=== PATIENT | male | born 1990 | race Caucasian/White ===

== ENCOUNTER 2016-09-03 17:20 | Observation (INO) ==
--- NOTE | 2016-09-03 17:49 | Emergency Department Note ---
Disposition Clinical Impression: Suicidal ideation Disposition: Still a Patient Condition: Undetermined Referrals: NO,PCP [Primary Care Provider] - Forms: ED Satisfaction Letter Time of Disposition: 21:08 Psych HPI - General Chief Complaint: ED Psychiatric Symptoms Stated Complaint: SI/HI withdrawing from heroin and ETOH Time Seen by Provider: 09/03/16 17:26 Source: patient Mode of arrival: ambulatory Limitations: no limitations Nursing Notes Reviewed: Yes Vital Signs Reviewed: Yes - History of Present Illness HPI Narrative: 25-year-old male with extensive psychiatric history as well as substance abuse arrives [facility] emergency department attempting to seek help. The patient states that he is currently withdrawing from heroin, withdrawing from multiple substances to include crack cocaine, heroin, Xanax, methamphetamines, Effexor, alcohol. The patient states he currently drinks 2 L size bottles of vodka every single day and the patient states he drank 2 L today. The patient states he is currently homeless and seeking to 6 help at this time. The patient states that he is contemplating robbing her hurting people in order to go back to half-way where he can be clean. In addition the patient states that he lost his insurance roughly 2 months ago and has not been taking his psychiatric medications since then. The patient denies any hallucinations but states he definitely has suicidal as well as homicidal ideations. The patient denies any other complaints at this time. His affect is full and he is mildly agitated at this time. Pt complaint: suicidal ideation, medical clearance request If medical clearance, reason: intoxication Onset (ago): unknown Duration: getting worse History of similar episodes: Yes Associated symptoms: Reports: denies other symptoms Treatments prior to arrival: none Self harm or harm to others: admits thoughts of self harm, admits thoughts of harming others - Related Data Allergies Allergy/AdvReac Type Severity Reaction Status Date / Time No Known Allergies Allergy Verified 09/03/16 17:35 All systems ED: reviewed and negative except as stated. Constitutional: Denies: fever, chills, weakness, weight change Eyes: Denies: eye pain, eye discharge, vision change Cardiovascular: Denies: chest pain, palpitations, dyspnea on exertion, edema, syncope Respiratory: Denies: cough, dyspnea, wheezes, hemoptysis, stridor Gastrointestinal: Denies: abdominal pain, nausea, vomiting, diarrhea, constipation, hematemesis, melena, hematochezia Genitourinary: Denies: urgency, dysuria, frequency, hematuria Musculoskeletal: Denies: back pain, neck pain, arthralgia, myalgia Integumentary: Denies: rash, abrasion, lesions Neurological: Denies: headache, weakness, numbness, paresthesias, confusion, abnormal gait, vertigo Psychiatric: Reports: anxiety, depression, suicidal thoughts, homicidal thoughts. Denies: auditory hallucinations, visual hallucinations Past Medical History - Past Medical History Attestation: Yes The following information was validated with the patient. Source: patient Medical history: Reports: hypertension Psychiatric history: Reports: anxiety, depression - Social History Smoking Status: Current every day smoker Smokeless Tobacco Status: No Alcohol use: Reports: heavy, recent Drug use: Reports: opiates, prescription drug abuse Physical Exam - General Limitations: no limitations General appearance: alert, in no apparent distress, anxious - Head Head exam: atraumatic, normocephalic, normal inspection - Eye Eye exam: Present: normal appearance, PERRL, EOMI - ENT ENT exam: normal exam, normal oropharynx, mucous membranes moist - Neck Neck exam: Present: normal inspection, full ROM, trachea midline - Chest Chest inspection: Present: normal inspection, symmetric chest wall rise - Respiratory Respiratory exam: Present: normal lung sounds bilaterally - Cardiovascular Cardiovascular exam: Present: regular rate, normal rhythm, normal heart sounds - Abdominal Exam Abdominal exam: Present: soft, Non-Tender. Absent: tenderness, distention, guarding, rebound, rigidity - Extremities Exam Extremities exam: Present: normal inspection, full ROM. Absent: tenderness, pedal edema - Back Exam Back exam: Present: normal inspection, full ROM. Absent: tenderness - Neurological Exam Neurological exam: Present: alert, oriented X3 - Psychiatric Psychiatric exam: Present: agitated, anxious, manic - Expanded Psychiatric Exam Expanded psych exam: Present: pressured speech, flight of ideas, other ( Intoxicated.) Course Vital Signs Temperature 0 F L 09/03/16 17:28 Pulse Rate 0 09/03/16 17:28 Respiratory Rate 0 09/03/16 17:28 Blood Pressure 0/0 09/03/16 17:28 O2 Sat by Pulse Oximetry 0 09/03/16 17:28 Temperature 97.8 F 09/03/16 18:39 Pulse Rate 96 09/03/16 18:39 Respiratory Rate 18 09/03/16 18:39 Blood Pressure 135/76 09/03/16 18:39 O2 Sat by Pulse Oximetry 97 09/03/16 18:39 Oxygen Delivery Oxygen Delivery Room Air Psych - MDM Narrative Medical decision making narrative: We will be obtaining medical clearance for psychiatric eval. Currently blood alcohol level is elevated so we will be waiting until 10 PM for redraw. - Lab Data Result diagrams: 09/03/16 18:25 09/03/16 17:57 Lab Results 09/03/16 09/03/16 09/03/16 Range/Units 17:57 17:57 17:57 WBC (4.3-11.1) K/mcL RBC (4.19-5.50) M/mcL Hgb (12.9-16.9) g/dL Hct (37.5-50.1) % MCV (83.0-100.0) fL MCH (28.0-33.3) pg MCHC (31.6-35.5) g/dL RDW (11.5-14.5) % Plt Count (140-400) K/mcL MPV (9.4-12.4) fL Immature Gran % (0-4) % Seg Neutrophils % % Lymphocytes % % Monocytes % % Eosinophils % % Basophils % % Neutrophils # (1.6-8.9) K/mcL Lymphocytes # (0.6-4.6) K/mcL Monocytes # (0.0-1.3) K/mcL Eosinophils # (0.0-0.6) K/mcL Basophils # (0.0-0.2) K/mcL Immature Plt Fraction (1.1-6.1) % Sodium 140 (136-145) mEq/L Potassium 4.0 (3.5-4.5) mEq/L Chloride 107 (98-109) mEq/L Carbon Dioxide 21 (19-29) mEq/L BUN 12 (8-26) mg/dL Creatinine 0.84 (0.72-1.25) mg/dL Est GFR ( Amer) > 60 (> 60) Est GFR (Non-Af Amer) > 60 (> 60) BUN/Creatinine Ratio 14 (6-26) Glucose 87 (70-99) mg/dL Calculated Osmolality 289 (280-300) Calcium 10.0 (8.6-10.8) mg/dL Urine Color Yellow (Yellow) Urine Clarity Clear (Clear) Urine pH 7.0 (5.0-8.0) pH Units Ur Specific [place] 1.008 L (1.010-1.025) Urine Protein Negative (Neg-Trace) mg/dL Urine Glucose (UA) Normal (Normal) mg/dL Urine Ketones Negative (Negative) mg/dL Urine Blood Trace H (Negative) Urine Nitrite Negative (Negative) Urine Bilirubin Negative (Negative) Urine Urobilinogen Normal (Normal) mg/dL Ur Leukocyte Esterase Negative (Negative) Urine Microscopic RBC 0-3 (0-3) per hpf Urine Microscopic WBC 0-3 (0-3) per hpf Ur Squamous Epith Cells None Seen (None-Few) per lpf Urine Bacteria None Seen (None-Few) per hpf Hyaline Casts None Seen (None-Few) per lpf Salicylates < 5.0 L (15-30) mg/dL Urine Opiates Screen Negative (Ualxcr=887) ng/mL Acetaminophen < 1.0 L (10-30) mcg/mL Ur Barbiturates Screen Negative (Qrpcgr=551) ng/mL Ur Phencyclidine Scrn Negative (Cutoff=25) ng/mL Ur Amphetamines Screen Negative (Yehdlq=8857) ng/mL U Benzodiazepines Scrn Negative (Yeukrm=222) ng/mL Urine Cocaine Screen Positive H (Cutoff= 300) ng/mL U Marijuana (THC) Screen Negative (Cutoff = 50) ng/mL Ethyl Alcohol 120 H (0-10) mg/dL 09/03/16 09/03/16 Range/Units 18:25 21:53 WBC 9.7 (4.3-11.1) K/mcL RBC 4.89 (4.19-5.50) M/mcL Hgb 14.4 (12.9-16.9) g/dL Hct 44.2 (37.5-50.1) % MCV 90.4 (83.0-100.0) fL MCH 29.4 (28.0-33.3) pg MCHC 32.6 (31.6-35.5) g/dL RDW 12.4 (11.5-14.5) % Plt Count 337 (140-400) K/mcL MPV 8.5 L (9.4-12.4) fL Immature Gran % 0.2 (0-4) % Seg Neutrophils % 79.3 % Lymphocytes % 10.2 % Monocytes % 9.7 % Eosinophils % 0.4 % Basophils % 0.2 % Neutrophils # 7.7 (1.6-8.9) K/mcL Lymphocytes # 1.0 (0.6-4.6) K/mcL Monocytes # 0.9 (0.0-1.3) K/mcL Eosinophils # 0.0 (0.0-0.6) K/mcL Basophils # 0.0 (0.0-0.2) K/mcL Immature Plt Fraction 1.2 (1.1-6.1) % Sodium (136-145) mEq/L Potassium (3.5-4.5) mEq/L Chloride (98-109) mEq/L Carbon Dioxide (19-29) mEq/L BUN (8-26) mg/dL Creatinine (0.72-1.25) mg/dL Est GFR ( Amer) (> 60) Est GFR (Non-Af Amer) (> 60) BUN/Creatinine Ratio (6-26) Glucose (70-99) mg/dL Calculated Osmolality (280-300) Calcium (8.6-10.8) mg/dL Urine Color (Yellow) Urine Clarity (Clear) Urine pH (5.0-8.0) pH Units Ur Specific [place] (1.010-1.025) Urine Protein (Neg-Trace) mg/dL Urine Glucose (UA) (Normal) mg/dL Urine Ketones (Negative) mg/dL Urine Blood (Negative) Urine Nitrite (Negative) Urine Bilirubin (Negative) Urine Urobilinogen (Normal) mg/dL Ur Leukocyte Esterase (Negative) Urine Microscopic RBC (0-3) per hpf Urine Microscopic WBC (0-3) per hpf Ur Squamous Epith Cells (None-Few) per lpf Urine Bacteria (None-Few) per hpf Hyaline Casts (None-Few) per lpf Salicylates (15-30) mg/dL Urine Opiates Screen (Njxjid=148) ng/mL Acetaminophen (10-30) mcg/mL Ur Barbiturates Screen (Dtvkpt=691) ng/mL Ur Phencyclidine Scrn (Cutoff=25) ng/mL Ur Amphetamines Screen (Rsqyid=9112) ng/mL U Benzodiazepines Scrn (Okxeeg=511) ng/mL Urine Cocaine Screen (Cutoff= 300) ng/mL U Marijuana (THC) Screen (Cutoff = 50) ng/mL Ethyl Alcohol 19 H (0-10) mg/dL Psychiatric Medical Clearance - Medical Clearance Checklist Medical History: No Social History Section defined Current Vitals: Last Vital Signs Temp 97.8 F 09/03/16 18:39 Pulse 96 09/03/16 18:39 Resp 18 09/03/16 18:39 BP 135/76 09/03/16 18:39 Pulse Ox 97 09/03/16 18:39 Psychiatric Lab Panel: Drug Levels and Toxicity 09/03/16 09/03/16 09/03/16 17:57 17:57 21:53 Urine Opiates Screen Negative Acetaminophen < 1.0 L Ur Barbiturates Screen Negative Ur Phencyclidine Scrn Negative Ur Amphetamines Screen Negative U Benzodiazepines Scrn Negative Urine Cocaine Screen Positive H U Marijuana (THC) Screen Negative Ethyl Alcohol 120 H 19 H Abnormal Labs: Abnormal lab results MPV 8.5 fL (9.4-12.4) L 09/03/16 18:25 Ur Specific [place] 1.008 (1.010-1.025) L 09/03/16 17:57 Urine Blood Trace (Negative) H 09/03/16 17:57 Salicylates < 5.0 mg/dL (15-30) L 09/03/16 17:57 Acetaminophen < 1.0 mcg/mL (10-30) L 09/03/16 17:57 Urine Cocaine Screen Positive ng/mL (Cutoff= 300) H 09/03/16 17:57 Ethyl Alcohol 19 mg/dL (0-10) H 09/03/16 21:53 S.B.A.[facility]. - [facility] Situation: Demographics Background: Presenting Complaint Assessment: Vital Signs, Course and respsone to treatment Recommendation: Barrier(s) to disposition, Recommendation based on pending studies, treatments, or consults S.B.A.R. Report Given to: Dr. Borges SLivB.[place] Repor Time: 23:00 Attestation Statement - Attestation Attestation: Patient was seen with resident physician. I reviewed the history, physical, assessment and plan, and agree with the findings. I also personally evaluated this patient and had [id number] time with this patient. 25-year-old male polysubstance abuse presents to the emergency department afraid of detox. Patient states that he just drank prior to coming to the emergency department. He feels like he should go to [place] because all he does is drink and do drugs when he is in [place]. He also says that he feels like he could hurt somebody to get the money and/or get back to half-way received for him to stay clean. He does not have suicidal ideation to my exam. He does appear agitated. On exam vital signs are stable. Heart and lungs normal. Abdomen soft and nontender. Extremities unremarkable. Psychiatric exam patient is agitated preferring to stand and sit on the cot. Neurologically is otherwise intact. ED course we will do laboratory testing required for psychiatric admission. If everything comes back negative we will call one-day, if alcohol is 2 high we may need to admit. I agree with the resident physician assessment and plan. Repeat alcohol at 10:00 showed a level under 80, so when he was contacted to evaluate patient. Patient was still patient the time of shift change. In signout was given to Dr. Borges for final disposition.
[2016-09-03 18:07] LABS: Bilirubin,Urine Negative (Negative); Blood,Urine Trace (Negative); Clarity,Urine Clear (Clear); Color,Urine Yellow (Yellow); Glucose,Urine (UA) Normal (Normal); Ketones,Urine Negative (Negative); Leukocyte Esterase,Urine Negative (Negative); Nitrite,Urine Negative (Negative); Protein,Urine Negative (Neg-Trace); Specific Gravity,Urine 1.008 (1.010-1.025); Urobilinogen,Urine Normal (Normal)
[2016-09-03 18:09] LABS: Bacteria,Urine None Seen per hpf (None-Few); Hyaline Casts,Urine None Seen per lpf (None-Few); RBC,Urine 0-3 per hpf (0-3); Squamous Epithelial Cell,Urine None Seen per lpf (None-Few); WBC,Urine 0-3 per hpf (0-3)
[2016-09-03 18:18] LABS: Amphetamine Screen,Urine Negative ng/mL (Cutoff=1000); Barbiturate Screen,Urine Negative ng/mL (Cutoff=200); Benzodiazepines Screen,Urine Negative ng/mL (Cutoff=200); Cannabinoid Screen,Urine Negative ng/mL (Cutoff = 50); Cocaine Screen,Urine Positive ng/mL (Cutoff= 300); Opiate Screen,Urine Negative ng/mL (Cutoff=300); Phencyclidine Screen,Urine Negative ng/mL (Cutoff=25)
[2016-09-03 18:19] LABS: BUN/Creatinine Ratio 14 (6-26); Blood Urea Nitrogen 12 mg/dL (8-26); Carbon Dioxide 21 mEq/L (19-29); Chloride 107 mEq/L (98-109); Ethanol 120 mg/dL (0-10); Glucose 87 mg/dL (70-99); Osmolality,Calculated 289 (280-300); Sodium 140 mEq/L (136-145); eGFR For African Americans > 60 (> 60); eGFR For Non-African Americans > 60 (> 60)
[2016-09-03 18:20] LABS: Acetaminophen < 1.0 mcg/mL (10-30); Salicylate < 5.0 mg/dL (15-30)
[2016-09-03 18:31] LABS: Basophils % 0.2 %; Eosinophils % 0.4 %; Hematocrit 44.2 % (37.5-50.1); Hemoglobin 14.4 g/dL (12.9-16.9); Immature Granulocytes % 0.2 % (0-4); Immature Platelets 1.2 % (1.1-6.1); Lymphocytes % 10.2 %; Mean Corpuscular HGB Conc 32.6 g/dL (31.6-35.5); Mean Corpuscular Hemoglobin 29.4 pg (28.0-33.3); Mean Corpuscular Volume 90.4 fL (83.0-100.0); Mean Platelet Volume 8.5 fL (9.4-12.4); Monocytes # 0.9 K/mcL (0.0-1.3); Monocytes % 9.7 %; Neutrophils # 7.7 K/mcL (1.6-8.9); Platelet Count 337 K/mcL (140-400); Red Blood Count 4.89 M/mcL (4.19-5.50); Red Cell Distribution Width 12.4 % (11.5-14.5); Segmented Neutrophils % 79.3 %
[2016-09-03] MEDS ORDERED: *HR* LORazepam 1 MG TABLET PO ONE (22:55)
[2016-09-04] MEDS ORDERED: *HR* LORazepam 1 MG TABLET PO ONE ×2 (15:55→18:35)
[2016-09-04] MEDS ORDERED: Ondansetron ODT 4 MG TAB.RAPDIS SL ONE ×2 (15:56→18:35)
[2016-09-04] MEDS ORDERED: Nicotine 21 MG PATCH.TD24 TD ONE (16:02)
[2016-09-04] MEDS ORDERED: MOM Conc 10 ML UD.LIQ PO PRN (20:19)
[2016-09-04] MEDS ORDERED: traZODone 50 MG TABLET PO PRN (20:19)
[2016-09-04] MEDS ORDERED: Mag Hydrox/Al Hydrox/Simeth 30 ML UDC PO PRN (20:19)
[2016-09-04] MEDS ORDERED: *HR* LORazepam 2 MG/ML VIAL IM PRN (20:19)
[2016-09-04] MEDS ORDERED: *HR* LORazepam 1 MG TABLET PO PRN (20:19)
[2016-09-04] MEDS ORDERED: Haloperidol Lactate 5 MG/ML VIAL IM PRN (20:19)
[2016-09-04] MEDS: hydrOXYzine pamoate 25 MG CAPSULE PO PRN (21:03)
[2016-09-04] MEDS: traZODone 50 MG TABLET PO PRN (21:04)
[2016-09-05] MEDS ORDERED: Nicotine 21 MG PATCH.TD24 TD SCH (09:00)
[2016-09-05] MEDS: hydrOXYzine pamoate 25 MG CAPSULE PO PRN ×3 (10:37→21:03)
[2016-09-05] MEDS: Nicotine 2 MG GUM BC PRN ×2 (10:39→13:04)
[2016-09-05] MEDS: Acetaminophen 325 MG TABLET PO PRN ×2 (10:44→21:02)
--- NOTE | 2016-09-05 12:48 | Psychiatry History & Physical ---
Date of Encounter: 09/06/16 Time of Encounter: 12:00 History of Present Illness Patient Stated Chief Complaint: Suicidal ideation, drug withdrawal Medicare Admission Attestation: For traditional Medicare patients the provided hospital inpatient services are reasonable and necessary and in the case of services not specified as inpatient -only under 42 CFR 419.22 (n), that they are appropriately provided as inpatient services in accordance 42 CFR 412.3. For Critical Access Hospital the patient may reasonably be expected to be discharged or transferred to a hospital within 96 hours after admission to the Critical Access Hospital. Admitted From: Emergency Dept History of Present Illness: Mr. Livingston is a 25 year old male admitted from the emergency department for suicidal ideation and drug withdrawal. Patient stated that she is calming off heroin and alcohol and cocaine and he is interested in detox, also he complain of suicidal ideation and being homeless. This is a first encounter with this patient at this hospital and past records are not available to review. He reports being treated for psychiatric illness since young age, he reported being treated with lithium, Effexor and also medication. He has been off medication for extended period of time but he was using drugs for the last 3 months including cocaine, heroin, alcohol. He denies any previous treatment or rehabilitation. He denies any previous suicide attempts or psychiatric hospitalization. Past Med Surg Social Fam HX - Past Medical History Medical history: hypertension, other - Past Psychiatric History Psychiatric history: Reports: no psych history - Past Surgical History Surgical History: no surgical history - Social History Smoking Status: Current every day smoker Smokeless Tobacco Status: No Alcohol use: heavy, recent Drug use: opiates, prescription drug abuse Medications & Allergies No Known Home Drugs 09/04/16 [History] Allergies No Known Allergies Allergy (Verified 09/03/16 17:35) Review of Systems Psychiatric: Reports: anxiety, suicidal ideation, irritability Mental Status Exam Patient orientation: Yes Person, Yes Time, Yes Place Level of alertness: Alert Patient appearance: Appropriate, Well Groomed, Thin Behavior: calm, cooperative, anxious, restless, impulsive Psychomotor activity: Increased Eye contact: Maintains Eye Contact Mood description: Anxious, Labile, Irritable Affect description: congruent with mood, labile, dysphoric, anxious Speech pattern: Normal rate, Normal rhythm, Normal tone, Repetitive Speech volume: Normal Thought process: Linear, Goal Oriented, Evasive Thought content: Yes Suicidal ideation, No Homicidal ideation, No Overt delusions Perceptual disturbances: No Auditory hallucinations, No Visual hallucinations Attention span: Capable of Focused Attention Memory description: Grossly Intact Patient reliability: Reliable Historian Intelligence estimate: Average Judgment: Limited Insight: Partial Results - Vital Signs Vital signs: Temp Pulse Resp BP Pulse Ox 98.6 F 84 16 136/86 98 09/05/16 09:00 09/05/16 09:00 09/05/16 09:00 09/05/16 09:00 09/04/16 15:30 - Labs Labs: Laboratory Last Values WBC 9.7 K/mcL (4.3-11.1) 09/03/16 18:25 RBC 4.89 M/mcL (4.19-5.50) 09/03/16 18:25 Hgb 14.4 g/dL (12.9-16.9) 09/03/16 18:25 Hct 44.2 % (37.5-50.1) 09/03/16 18:25 MCV 90.4 fL (83.0-100.0) 09/03/16 18:25 MCH 29.4 pg (28.0-33.3) 09/03/16 18:25 MCHC 32.6 g/dL (31.6-35.5) 09/03/16 18:25 RDW 12.4 % (11.5-14.5) 09/03/16 18:25 Plt Count 337 K/mcL (140-400) 09/03/16 18:25 MPV 8.5 fL (9.4-12.4) L 09/03/16 18:25 Immature Gran % 0.2 % (0-4) 09/03/16 18:25 Seg Neutrophils % 79.3 % 09/03/16 18:25 Lymphocytes % 10.2 % 09/03/16 18:25 Monocytes % 9.7 % 09/03/16 18:25 Eosinophils % 0.4 % 09/03/16 18:25 Basophils % 0.2 % 09/03/16 18:25 Neutrophils # 7.7 K/mcL (1.6-8.9) 09/03/16 18:25 Lymphocytes # 1.0 K/mcL (0.6-4.6) 09/03/16 18:25 Monocytes # 0.9 K/mcL (0.0-1.3) 09/03/16 18:25 Eosinophils # 0.0 K/mcL (0.0-0.6) 09/03/16 18:25 Basophils # 0.0 K/mcL (0.0-0.2) 09/03/16 18:25 Immature Plt Fraction 1.2 % (1.1-6.1) 09/03/16 18:25 Sodium 140 mEq/L (136-145) 09/03/16 17:57 Potassium 4.0 mEq/L (3.5-4.5) 09/03/16 17:57 Chloride 107 mEq/L (98-109) 09/03/16 17:57 Carbon Dioxide 21 mEq/L (19-29) 09/03/16 17:57 BUN 12 mg/dL (8-26) 09/03/16 17:57 Creatinine 0.84 mg/dL (0.72-1.25) 09/03/16 17:57 Est GFR ( Amer) > 60 (> 60) 09/03/16 17:57 Est GFR (Non-Af Amer) > 60 (> 60) 09/03/16 17:57 BUN/Creatinine Ratio 14 (6-26) 09/03/16 17:57 Glucose 87 mg/dL (70-99) 09/03/16 17:57 Calculated Osmolality 289 (280-300) 09/03/16 17:57 Calcium 10.0 mg/dL (8.6-10.8) 09/03/16 17:57 Urine Color Yellow (Yellow) 09/03/16 17:57 Urine Clarity Clear (Clear) 09/03/16 17:57 Urine pH 7.0 pH Units (5.0-8.0) 09/03/16 17:57 Ur Specific [place] 1.008 (1.010-1.025) L 09/03/16 17:57 Urine Protein Negative mg/dL (Neg-Trace) 09/03/16 17:57 Urine Glucose (UA) Normal mg/dL (Normal) 09/03/16 17:57 Urine Ketones Negative mg/dL (Negative) 09/03/16 17:57 Urine Blood Trace (Negative) H 09/03/16 17:57 Urine Nitrite Negative (Negative) 09/03/16 17:57 Urine Bilirubin Negative (Negative) 09/03/16 17:57 Urine Urobilinogen Normal mg/dL (Normal) 09/03/16 17:57 Ur Leukocyte Esterase Negative (Negative) 09/03/16 17:57 Urine Microscopic RBC 0-3 per hpf (0-3) 09/03/16 17:57 Urine Microscopic WBC 0-3 per hpf (0-3) 09/03/16 17:57 Ur Squamous Epith Cells None Seen per lpf (None-Few) 09/03/16 17:57 Urine Bacteria None Seen per hpf (None-Few) 09/03/16 17:57 Hyaline Casts None Seen per lpf (None-Few) 09/03/16 17:57 Salicylates < 5.0 mg/dL (15-30) L 09/03/16 17:57 Urine Opiates Screen Negative ng/mL (Zrdwvo=607) 09/03/16 17:57 Acetaminophen < 1.0 mcg/mL (10-30) L 09/03/16 17:57 Ur Barbiturates Screen Negative ng/mL (Aojgcc=272) 09/03/16 17:57 Ur Phencyclidine Scrn Negative ng/mL (Cutoff=25) 09/03/16 17:57 Ur Amphetamines Screen Negative ng/mL (Xoqdgn=5839) 09/03/16 17:57 U Benzodiazepines Scrn Negative ng/mL (Vueuoj=161) 09/03/16 17:57 Urine Cocaine Screen Positive ng/mL (Cutoff= 300) H 09/03/16 17:57 U Marijuana (THC) Screen Negative ng/mL (Cutoff = 50) 09/03/16 17:57 Ethyl Alcohol 19 mg/dL (0-10) H 09/03/16 21:53 Assessment and Plan (1) Suicidal ideation Current visit: Yes Status: Acute Plan: Admit inpatient for safety and stabilization, Close observation, Suicide Precautions per unit protocol, Encourage participation in unit milieu, Group Therapy, Monitor sleep, Monitor appetite Additional Plan: We will start patient on Effexor XR and gabapentin. When requests treatment records to review Risks, benefits, side effects, alternatives discussed w/pt: Yes Patient agreeable to treatment: Yes (2) Cocaine abuse Current visit: Yes Status: Acute Plan: Admit inpatient for safety and stabilization, Close observation, Suicide Precautions per unit protocol, Encourage participation in unit milieu, Group Therapy, Monitor sleep, Monitor appetite (3) Alcohol dependence Current visit: Yes Status: Acute Plan: Admit inpatient for safety and stabilization, Close observation, Suicide Precautions per unit protocol, Encourage participation in unit milieu, Group Therapy, Monitor sleep, Monitor appetite Qualifiers: Qualified Code(s): F10.20 - Alcohol dependence, uncomplicated
[2016-09-05] MEDS: Venlafaxine XR (24 HR) 150 MG CAP.ER.24H PO SCH (13:04)
[2016-09-05] MEDS: Gabapentin 400 MG CAPSULE PO SCH ×2 (15:00→21:04)
[2016-09-05] MEDS: *HR* LORazepam 1 MG TABLET PO PRN ×2 (16:00→21:03)
[2016-09-05] MEDS: traZODone 50 MG TABLET PO PRN (21:03)
[2016-09-06] MEDS: Venlafaxine XR (24 HR) 150 MG CAP.ER.24H PO SCH (09:28)
[2016-09-06] MEDS: Gabapentin 400 MG CAPSULE PO SCH (09:28)
[2016-09-06] MEDS: Nicotine 2 MG GUM BC PRN (09:28)
[2016-09-06] MEDS: hydrOXYzine pamoate 25 MG CAPSULE PO PRN (10:17)
[2016-09-06 12:49] VITALS: BP 105/71
--- NOTE | 2016-09-06 13:16 | Discharge Summary ---
Date of Encounter: 09/06/16 Time of Encounter: 13:00 Diagnosis - Discharge Diagnosis (1) Suicidal ideation Status: Acute (2) Cocaine abuse Status: Acute (3) Alcohol dependence Status: Acute Qualifiers: Substance use status: in withdrawal Qualified Code(s): F10.230 - Alcohol dependence with withdrawal, uncomplicated Medications - Discharge Medications Prescriptions: Gabapentin [Neurontin] 400 mg PO TID #120 capsule Venlafaxine XR (24 HR) [Effexor Xr] 150 mg PO DAILY #30 cap.er.24h Gabapentin [Neurontin] 400 mg PO TID #120 capsule 09/06/16 [Rx] Venlafaxine XR (24 HR) [Effexor Xr] 150 mg PO DAILY #30 cap.er.24h 09/06/16 [Rx] Allergies No Known Allergies Allergy (Verified 09/03/16 17:35) Provider Date of admission: 09/04/16 19:46 Primary care physician: PCP NO Discharging clinician: Bharathi Johnson Assessment and Plan - Patient/Caregiver Discharge Instructions Activity: resume usual activities as tolerated Diet: regular diet - Follow up Plan Follow up with: [facility] [Outside] - 09/12/16 10:30 am (The above appointment is with Erin Rueda CNP. You will also be seen by the counselor in the office, Priscilla, after you have been seen by Erin. Your needs for medication and/or Vivitrol will be assessed and treated as indicated as well. ) [facility] [Outside] - 09/20/16 8:30 am (The above appointment is with Cintia Nunez. Please bring some type of identification.) Functional capacity at discharge: independent ambulation Overall status at discharge: Stable Disposition: Home, Self-Care Hospital Course Hospital course: Mr. Livingston is a 25 year old male admitted from the emergency room for suicidal ideation and withdrawal from drugs including alcohol and heroin. For details admission please see H&P On the unit patient was anxious, irritable and unable to sleep. He was started on medication including Effexor XL 150 mg daily and gabapentin 400 mg 3 times a day in addition to when necessary medication. Patient reported good night sleep and no anxiety and denied any suicidal ideation his vital signs were stable and did not have any withdrawal symptoms. His discharge plans was completed by social work job titles to placement in a half-way and follow-up appointments. On discharge patient is medically stable and nonsuicidal and future oriented. - Time Spent with Patient Total time spent providing and/or coordinating discharge services: Greater than 30 minutes Quality - Multiple Antipsychotics Patient discharged on 2 or more antipsychotic medications: No Procedures - Procedures Procedures: Medication Management, Crisis Stabilization, Supportive Therapy, Group Therapy, Psychoeducational Therapy Mental Status Exam - Mental Status Exam Patient orientation: Yes Person, Yes Time, Yes Place Level of alertness: Alert Patient appearance: Appropriate, Well Groomed, Thin Behavior: calm, cooperative Psychomotor activity: Normal Eye contact: Maintains Eye Contact Mood description: Euthymic/stable Affect description: congruent with mood, full range Speech pattern: Normal rate, Normal rhythm, Normal tone Speech Volume: Normal Thought process: Linear, Goal Oriented Thought Content: No Suicidal ideation, No Homicidal ideation, No Overt delusions Perceptual Disturbances: No Auditory hallucinations, No Visual hallucinations Judgment: Limited Insight: Partial
== END 2016-09-06 14:40 | disposition home or self-care (01) ==
LOC: 1ANU 17:20 → EMEROO 17:20 → 1ANU 09-04 20:07
PROVIDERS: ADMIT Psychiatry & Neurology Psychiatry; ATTEND Psychiatry & Neurology Psychiatry

== ENCOUNTER 2017-06-07 20:59 | Inpatient (IN) ==
[2017-06-07 21:58] LABS: Basophils % 0.3 %; Eosinophils % 0.4 %; Hematocrit 47.9 % (37.5-50.1); Hemoglobin 16.1 g/dL (12.9-16.9); Immature Granulocytes % 0.4 % (0-4); Lymphocytes # 1.3 K/mcL (0.6-4.6); Lymphocytes % 12.2 %; Mean Corpuscular HGB Conc 33.6 g/dL (31.6-35.5); Mean Corpuscular Hemoglobin 29.7 pg (28.0-33.3); Mean Corpuscular Volume 88.2 fL (83.0-100.0); Mean Platelet Volume 9.1 fL (9.4-12.4); Monocytes # 0.6 K/mcL (0.0-1.3); Monocytes % 5.5 %; Neutrophils # 8.6 K/mcL (1.6-8.9); Platelet Count 267 K/mcL (140-400); Red Blood Count 5.43 M/mcL (4.19-5.50); Segmented Neutrophils % 81.2 %
--- NOTE | 2017-06-07 22:06 | Emergency Department Note ---
Disposition Clinical Impression: Acute psychosis Disposition: Admitted As Inpatient Condition: Fair Referrals: NONE,PCP [Primary Care Provider] - Forms: ED Satisfaction Letter Time of Disposition: 03:03 General Adult HPI - General Chief complaint: ED Psychiatric Symptoms Stated complaint: si,hi getting violent with others Time Seen by Provider: 06/07/17 21:04 Limitations: no limitations Nursing Notes Reviewed: Yes Vital Signs Reviewed: Yes - History of Present Illness HPI Narrative: Patient emergency department requesting admission to psych. Patient has a history of schizophrenia. He is noncompliant with his medications. Patient does not admit to be in suicidal but states he took a months with the medication 3 days. He is agitated. He [employer] computer thorough wall. Mom is scared of him. States he staying awake 4-5 days at a time. He has a history of heroin abuse. He is hepatitis C positive. He states he no longer uses heroin but he does abuse crystal meth. Pain Scale: 0 - Related Data Previous Rx's Medication Instructions Recorded Gabapentin [Neurontin] 400 mg PO TID #120 capsule 09/06/16 Venlafaxine XR (24 HR) [Effexor Xr] 150 mg PO DAILY #30 cap.er.24h 09/06/16 Gabapentin [Neurontin] 400 mg PO TID #15 capsule 11/07/16 Venlafaxine XR (24 HR) [Effexor XR] 150 mg PO DAILY #5 cap.er.24h 11/07/16 Allergies Allergy/AdvReac Type Severity Reaction Status Date / Time No Known Allergies Allergy Verified 09/03/16 17:35 All systems ED: reviewed and negative except as stated. Constitutional: Denies: fever Cardiovascular: Reports: chest pain Respiratory: Denies: dyspnea Gastrointestinal: Denies: vomiting, diarrhea Past Medical History - Past Medical History Attestation: Yes The following information was validated with the patient. Source: patient, obtained from family Medical history: Reports: hypertension, other Surgical history: Reports: no surgical history Psychiatric history: Reports: no psych history - Social History Smoking Status: Current every day smoker Smokeless Tobacco Status: No Alcohol use: Reports: heavy Drug use: Reports: opiates, prescription drug abuse Physical Exam Patient awake and alert. Anxious. Pressured speech. Sitting on the edge of the bed. - General Limitations: no limitations General appearance: alert - Head Head exam: atraumatic, normocephalic - Eye Eye exam: Present: normal appearance - ENT ENT exam: normal exam - Neck Neck exam: Present: normal inspection - Chest Chest inspection: Present: normal inspection, symmetric chest wall rise - Respiratory Respiratory exam: Present: normal lung sounds bilaterally. Absent: respiratory distress - Cardiovascular Cardiovascular exam: Present: regular rate, normal rhythm, normal heart sounds - Abdominal Exam Abdominal exam: Present: soft - Neurological Exam Neurological exam: Present: alert, oriented X3 - Psychiatric Psychiatric exam: Present: agitated, anxious - Skin Skin exam: Present: warm, dry Course - Reevaluation(s) Reevaluation #1: Discussed with poison control who recommends lactic acid, ck and iv fluids. Time: 22:43 Reevaluation #2: 1a to admit Time: 03:03 Vital Signs Temperature 98.4 F 06/07/17 21:48 Pulse Rate 150 06/07/17 21:48 Respiratory Rate 18 06/07/17 21:48 Blood Pressure 195/111 06/07/17 21:48 O2 Sat by Pulse Oximetry 100 06/07/17 21:48 Temperature 98.4 F 06/08/17 00:22 Pulse Rate 128 06/08/17 00:22 Respiratory Rate 16 06/08/17 00:22 Blood Pressure 182/70 06/08/17 00:22 O2 Sat by Pulse Oximetry 100 06/08/17 00:22 Oxygen Delivery Oxygen Delivery Room Air Medical Decision Making - Lab Data Result diagrams: 06/07/17 21:36 06/07/17 21:36 Lab Results 06/07/17 06/07/17 06/07/17 Range/Units 21:36 21:36 22:00 WBC 10.5 (4.3-11.1) K/mcL RBC 5.43 (4.19-5.50) M/mcL Hgb 16.1 (12.9-16.9) g/dL Hct 47.9 (37.5-50.1) % MCV 88.2 (83.0-100.0) fL MCH 29.7 (28.0-33.3) pg MCHC 33.6 (31.6-35.5) g/dL RDW 12.0 (11.5-14.5) % Plt Count 267 (140-400) K/mcL MPV 9.1 L (9.4-12.4) fL Immature Gran % 0.4 (0-4) % Seg Neutrophils % 81.2 % Lymphocytes % 12.2 % Monocytes % 5.5 % Eosinophils % 0.4 % Basophils % 0.3 % Neutrophils # 8.6 (1.6-8.9) K/mcL Lymphocytes # 1.3 (0.6-4.6) K/mcL Monocytes # 0.6 (0.0-1.3) K/mcL Eosinophils # 0.0 (0.0-0.6) K/mcL Basophils # 0.0 (0.0-0.2) K/mcL Sodium 138 (136-145) mEq/L Potassium 4.0 (3.5-5.1) mEq/L Chloride 102 (98-107) mEq/L Carbon Dioxide 28 (23-29) mEq/L BUN 10 (6-20) mg/dL Creatinine 0.91 (0.70-1.30) mg/dL Est GFR ( Amer) > 60 (> 60) Est GFR (Non-Af Amer) > 60 (> 60) BUN/Creatinine Ratio 11 (6-26) Glucose 95 (70-105) mg/dL Calculated Osmolality 285 (280-300) Lactic Acid (0.5-2.2) mmol/L Calcium 10.5 H (8.6-10.3) mg/dL Magnesium (1.6-2.6) mg/dL Total Bilirubin 0.3 (0.3-1.0) mg/dL Direct Bilirubin 0.1 (0.0-0.2) mg/dL Indirect Bilirubin 0.2 (0.0-1.2) mg/dL AST 28 (13-39) Units/L ALT 49 (7-52) Units/L Alkaline Phosphatase 91 (34-104) Units/L Creatine Kinase (30-223) Units/L Serum Total Protein 7.7 (6.4-8.9) g/dL Albumin 5.1 (3.5-5.7) g/dL Globulin 2.6 (2.4-3.5) g/dL Albumin/Globulin Ratio 2.0 (1.1-2.2) Urine Color Yellow (Yellow) Urine Clarity Clear (Clear) Urine pH 7.0 (5.0-8.0) pH Units Ur Specific [place] 1.017 (1.010-1.025) Urine Protein Negative (Neg-Trace) mg/dL Urine Glucose (UA) Normal (Normal) mg/dL Urine Ketones Negative (Negative) mg/dL Urine Blood Negative (Negative) Urine Nitrite Negative (Negative) Urine Bilirubin Negative (Negative) Urine Urobilinogen Normal (Normal) mg/dL Ur Leukocyte Esterase Negative (Negative) Salicylates < 5.0 L (15.0-30.0) mg/dL Urine Opiates Screen (Utgtuk=052) ng/mL Acetaminophen < 1.0 L (10-30) mcg/mL Ur Barbiturates Screen (Rcijgp=567) ng/mL Ur Phencyclidine Scrn (Cutoff=25) ng/mL Ur Amphetamines Screen (Enuboa=6101) ng/mL U Benzodiazepines Scrn (Yrvozy=891) ng/mL Urine Cocaine Screen (Cutoff= 300) ng/mL U Marijuana (THC) Screen (Cutoff = 50) ng/mL Ethyl Alcohol < 10 (0-10) mg/dL 06/07/17 06/07/17 06/07/17 Range/Units 22:00 22:46 22:46 WBC (4.3-11.1) K/mcL RBC (4.19-5.50) M/mcL Hgb (12.9-16.9) g/dL Hct (37.5-50.1) % MCV (83.0-100.0) fL MCH (28.0-33.3) pg MCHC (31.6-35.5) g/dL RDW (11.5-14.5) % Plt Count (140-400) K/mcL MPV (9.4-12.4) fL Immature Gran % (0-4) % Seg Neutrophils % % Lymphocytes % % Monocytes % % Eosinophils % % Basophils % % Neutrophils # (1.6-8.9) K/mcL Lymphocytes # (0.6-4.6) K/mcL Monocytes # (0.0-1.3) K/mcL Eosinophils # (0.0-0.6) K/mcL Basophils # (0.0-0.2) K/mcL Sodium (136-145) mEq/L Potassium (3.5-5.1) mEq/L Chloride (98-107) mEq/L Carbon Dioxide (23-29) mEq/L BUN (6-20) mg/dL Creatinine (0.70-1.30) mg/dL Est GFR ( Amer) (> 60) Est GFR (Non-Af Amer) (> 60) BUN/Creatinine Ratio (6-26) Glucose (70-105) mg/dL Calculated Osmolality (280-300) Lactic Acid 2.2 (0.5-2.2) mmol/L Calcium (8.6-10.3) mg/dL Magnesium 1.8 (1.6-2.6) mg/dL Total Bilirubin (0.3-1.0) mg/dL Direct Bilirubin (0.0-0.2) mg/dL Indirect Bilirubin (0.0-1.2) mg/dL AST (13-39) Units/L ALT (7-52) Units/L Alkaline Phosphatase (34-104) Units/L Creatine Kinase 79 (30-223) Units/L Serum Total Protein (6.4-8.9) g/dL Albumin (3.5-5.7) g/dL Globulin (2.4-3.5) g/dL Albumin/Globulin Ratio (1.1-2.2) Urine Color (Yellow) Urine Clarity (Clear) Urine pH (5.0-8.0) pH Units Ur Specific [place] (1.010-1.025) Urine Protein (Neg-Trace) mg/dL Urine Glucose (UA) (Normal) mg/dL Urine Ketones (Negative) mg/dL Urine Blood (Negative) Urine Nitrite (Negative) Urine Bilirubin (Negative) Urine Urobilinogen (Normal) mg/dL Ur Leukocyte Esterase (Negative) Salicylates (15.0-30.0) mg/dL Urine Opiates Screen Negative (Otollh=299) ng/mL Acetaminophen (10-30) mcg/mL Ur Barbiturates Screen Negative (Ijitot=658) ng/mL Ur Phencyclidine Scrn Negative (Cutoff=25) ng/mL Ur Amphetamines Screen Positive H (Fmjxuk=7613) ng/mL U Benzodiazepines Scrn Negative (Ektspr=423) ng/mL Urine Cocaine Screen Negative (Cutoff= 300) ng/mL U Marijuana (THC) Screen Positive H (Cutoff = 50) ng/mL Ethyl Alcohol (0-10) mg/dL - EKG Data EKG #1 EKG attestation: Yes I reviewed and interpreted this EKG. EKG results narrative: Sinus tach at 141. Normal axis. Normal QRS. QT to 70 for the QTC at 356. No old for comparison. Critical Care Time Critical Care Time: No
[2017-06-07 22:22] LABS: Alanine Aminotransferase 49 Units/L (7-52); Albumin 5.1 g/dL (3.5-5.7); Alkaline Phosphatase 91 Units/L (34-104); Aspartate Amino Transferase 28 Units/L (13-39); BUN/Creatinine Ratio 11 (6-26); Bilirubin,Direct 0.1 mg/dL (0.0-0.2); Bilirubin,Indirect 0.2 mg/dL (0.0-1.2); Bilirubin,Total 0.3 mg/dL (0.3-1.0); Blood Urea Nitrogen 10 mg/dL (6-20); Calcium 10.5 mg/dL (8.6-10.3); Carbon Dioxide 28 mEq/L (23-29); Chloride 102 mEq/L (98-107); Globulin 2.6 g/dL (2.4-3.5); Glucose 95 mg/dL (70-105); Osmolality,Calculated 285 (280-300); Sodium 138 mEq/L (136-145); Total Protein 7.7 g/dL (6.4-8.9); eGFR For African Americans > 60 (> 60); eGFR For Non-African Americans > 60 (> 60)
[2017-06-07 22:26] LABS: Acetaminophen < 1.0 mcg/mL (10-30); Ethanol < 10 mg/dL (0-10); Salicylate < 5.0 mg/dL (15.0-30.0)
[2017-06-07 22:37] LABS: Bilirubin,Urine Negative (Negative); Blood,Urine Negative (Negative); Clarity,Urine Clear (Clear); Color,Urine Yellow (Yellow); Glucose,Urine (UA) Normal (Normal); Ketones,Urine Negative (Negative); Leukocyte Esterase,Urine Negative (Negative); Nitrite,Urine Negative (Negative); Protein,Urine Negative (Neg-Trace); Specific Gravity,Urine 1.017 (1.010-1.025); Urobilinogen,Urine Normal (Normal)
[2017-06-07] MEDS ORDERED: *HR* LORazepam Oral Conc 2 MG/ML PO STA (22:39)
[2017-06-07] MEDS ORDERED: 0.9 % Sodium Chloride 1,000 ML IVC ONE (22:39)
[2017-06-07 22:41] LABS: Amphetamine Screen,Urine Positive ng/mL (Cutoff=1000); Barbiturate Screen,Urine Negative ng/mL (Cutoff=200); Benzodiazepines Screen,Urine Negative ng/mL (Cutoff=200); Cannabinoid Screen,Urine Positive ng/mL (Cutoff = 50); Cocaine Screen,Urine Negative ng/mL (Cutoff= 300); Opiate Screen,Urine Negative ng/mL (Cutoff=300); Phencyclidine Screen,Urine Negative ng/mL (Cutoff=25)
[2017-06-07 23:17] LABS: Magnesium 1.8 mg/dL (1.6-2.6)
[2017-06-08] MEDS ORDERED: Acetaminophen 325 MG TABLET PO PRN (05:18)
[2017-06-08] MEDS ORDERED: Mag Hydrox/Al Hydrox/Simeth 30 ML UDC PO PRN (05:18)
[2017-06-08] MEDS ORDERED: traZODone 50 MG TABLET PO PRN (05:18)
[2017-06-08] MEDS ORDERED: *HR* LORazepam 1 MG TABLET PO PRN (05:18)
[2017-06-08] MEDS ORDERED: MOM Conc 10 ML UD.LIQ PO PRN (05:18)
[2017-06-08] MEDS ORDERED: Haloperidol Lactate 5 MG/ML VIAL IM PRN (05:18)
[2017-06-08] MEDS ORDERED: *HR* LORazepam 2 MG/ML VIAL IM PRN (05:18)
[2017-06-08] MEDS: Nicotine 21 MG PATCH.TD24 TD SCH (08:39)
[2017-06-08] MEDS: hydrOXYzine pamoate 25 MG CAPSULE PO PRN ×2 (08:39→21:24)
--- NOTE | 2017-06-08 11:07 | Psychiatry History & Physical ---
Date of Encounter: 06/08/17 Time of Encounter: 10:30 History of Present Illness Patient Stated Chief Complaint: I came here last night because i lost it. Medicare Admission Attestation: For traditional Medicare patients the provided hospital inpatient services are reasonable and necessary and in the case of services not specified as inpatient -only under 42 CFR 419.22 (n), that they are appropriately provided as inpatient services in accordance 42 CFR 412.3. For Critical Access Hospital the patient may reasonably be expected to be discharged or transferred to a hospital within 96 hours after admission to the Critical Access Hospital. Admitted From: Emergency Dept Plans for Post Hospital Care: Home History of Present Illness: Mr. Livingston is a 26 year old male evaluated today , admitted from ED has history of Schizophrenia/Bipolar he is psychotic , not sleeping , mother scared of him as he has agitated , he threw the computer through the wall ,he is non compliant with his medications, and using Methamphetamine. Patient was released from in patient [facility] care 4 weeks ago , was given lithium , gabapentin , remeron . he has history of heroin,alcohol and cocain , recently using methamphetamine i/ v 1-2 times a week . has been on vivitrol and suboxone in past as per him. At present he has tangential and circumstantial thought process, he has to be redirected multiple times , he has been restless and moving a lot during interview, he states has taken medication given to him but ran out , he has not been sleeping for days and has grandiose and paranoid delusions, states you can see in my notes i have been treated for hallucinations. 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 i can do for ever, i kind of torture my self with Meth. , when i go to high , ican not sleep but i can think. " If i do not get on my medications or engaging in treatment or reward system i can hurt myself and i do not know what will i do. Patient has past psychiatric history and substance use and non compliance. At present patient needs in patient hospitalization for safety and stabilization Past Med Surg Social Fam HX - Past Medical History Medical history: hepatitis, hypertension, other - Past Psychiatric History Psychiatric history: Reports: bipolar, depression, previous psychiatric hospitalization Family psychiatric history: Yes Family Psychiatric History Details: mother has been dx with bipolar affective disorder. Family History of Suicide: Attempted (mother had suicidae attempt , sister with substance use disorder.) - Past Surgical History Surgical History: non-contributory - Social History Smoking Status: Current every day smoker Smokeless Tobacco Status: No Alcohol use: occasionally, recent Drug use: opiates, marijuana, methamphetamine, IV Drug Use, prescription drug abuse Occupational status: student Current living situation: Home, With Family Activity Level: Independent ambulation Recent Out of Country Travel Within the Last 8 Weeks: No Exposure or Possible Exposure to Illness During Travel: No Medications & Allergies Cyclobenzaprine [Flexeril] 10 mg PO TID PRN 06/08/17 [History] Gabapentin [Neurontin] 600 mg PO QID 06/08/17 [History] [place] Carbonate ER [Eskalith] 450 mg PO BID 06/08/17 [History] Mirtazapine [Remeron] 30 mg PO HS 06/08/17 [History] cloNIDine HCl [Clonidine HCl] 0.2 mg PO BID 06/08/17 [History] hydrOXYzine pamoate [HydrOXYzine Pamoate] 25 mg PO QID PRN 06/08/17 [History] 3 Allergy/AdvReac Type Severity Reaction Status Date / Time aspirin Allergy See Verified 06/08/17 10:02 Comments Review of Systems Constitutional: Denies: fever, chills, weakness, weight change Eyes: Denies: eye pain, vision change Ears, Nose, Throat: Denies: ear pain, throat pain, dental pain, hearing loss, congestion Cardiovascular: Denies: chest pain, palpitations, dyspnea on exertion Respiratory: Denies: cough, dyspnea, wheezes Gastrointestinal: Denies: abdominal pain, nausea, vomiting, diarrhea, constipation Genitourinary male: Denies: urgency, dysuria, frequency, genital lesions Musculoskeletal: Denies: joint swelling, joint pain Integumentary: Denies: rash, lesions, pruritus Neurological: Denies: headache, weakness, numbness, memory loss Psychiatric: Reports: abnormal sleep pattern, suicidal ideation, change in appetite, auditory hallucinations, difficulty concentrating, irritability, mood swings Exam - HEENT Head exam IM: Present: atraumatic, normal inspection, normocephalic Eye exam IM: Present: normal appearance ENT exam IM: Present: normal exam - Neurological Neurological exam: Present: CN II-XII intact, alert, no focal deficits - Respiratory Respiratory exam IM: Present: CTAB - GI/Abdominal GI/Abdominal exam IM: Present: normal bowel sounds, soft. Absent: tenderness - Extremities Extremities exam IM: Present: full ROM - Constitutional Vitals: Temp Pulse Resp BP Pulse Ox 97.9 F 121 16 165/103 100 06/08/17 09:00 06/08/17 09:00 06/08/17 09:00 06/08/17 09:00 06/08/17 00:22 General appearance: age & developmentally appropriate - Musculoskeletal Gait: normal Station: other Strength & Tone: normal for patient - Psychiatric Patient Orientation: Yes Person, Yes Time, Yes Place Level of alertness: Alert Behavior: restless, distractible, talkative Psychomotor activity: Increased Eye Contact: Maintains Eye Contact Mood Description: Elevated, Irritable Affect description: congruent with mood Speech Volume: Loud Speech pattern: rambling, excessive, pressured Language & Vocabulary: consistent with education Thought Process: Circumstantial, Tangential, Disorganized, Racing Thought Content: Yes Suicidal ideation, Yes Paranoid delusion, Yes Grandiose delusion Perceptual Disturbances: Yes Auditory hallucinations Attention Span Ability: Unable to Sustain Attention Patient Reliability: Questionable Historian Fund of knowledge: Yes average Judgment: Poor Insight: Minimal Results - Labs Labs: Laboratory Last Values WBC 10.5 K/mcL (4.3-11.1) 06/07/17 21:36 RBC 5.43 M/mcL (4.19-5.50) 06/07/17 21:36 Hgb 16.1 g/dL (12.9-16.9) 06/07/17 21:36 Hct 47.9 % (37.5-50.1) 06/07/17 21:36 MCV 88.2 fL (83.0-100.0) 06/07/17 21:36 MCH 29.7 pg (28.0-33.3) 06/07/17 21:36 MCHC 33.6 g/dL (31.6-35.5) 06/07/17 21:36 RDW 12.0 % (11.5-14.5) 06/07/17 21:36 Plt Count 267 K/mcL (140-400) 06/07/17 21:36 MPV 9.1 fL (9.4-12.4) L 06/07/17 21:36 Immature Gran % 0.4 % (0-4) 06/07/17 21:36 Seg Neutrophils % 81.2 % 06/07/17 21:36 Lymphocytes % 12.2 % 06/07/17 21:36 Monocytes % 5.5 % 06/07/17 21:36 Eosinophils % 0.4 % 06/07/17 21:36 Basophils % 0.3 % 06/07/17 21:36 Neutrophils # 8.6 K/mcL (1.6-8.9) 06/07/17 21:36 Lymphocytes # 1.3 K/mcL (0.6-4.6) 06/07/17 21:36 Monocytes # 0.6 K/mcL (0.0-1.3) 06/07/17 21:36 Eosinophils # 0.0 K/mcL (0.0-0.6) 06/07/17 21:36 Basophils # 0.0 K/mcL (0.0-0.2) 06/07/17 21:36 Sodium 138 mEq/L (136-145) 06/07/17 21:36 Potassium 4.0 mEq/L (3.5-5.1) 06/07/17 21:36 Chloride 102 mEq/L (98-107) 06/07/17 21:36 Carbon Dioxide 28 mEq/L (23-29) 06/07/17 21:36 BUN 10 mg/dL (6-20) 06/07/17 21:36 Creatinine 0.91 mg/dL (0.70-1.30) 06/07/17 21:36 Est GFR ( Amer) > 60 (> 60) 06/07/17 21:36 Est GFR (Non-Af Amer) > 60 (> 60) 06/07/17 21:36 BUN/Creatinine Ratio 11 (6-26) 06/07/17 21:36 Glucose 95 mg/dL (70-105) 06/07/17 21:36 Calculated Osmolality 285 (280-300) 06/07/17 21:36 Lactic Acid 2.2 mmol/L (0.5-2.2) 06/07/17 22:46 Calcium 10.5 mg/dL (8.6-10.3) H 06/07/17 21:36 Magnesium 1.8 mg/dL (1.6-2.6) 06/07/17 22:46 Total Bilirubin 0.3 mg/dL (0.3-1.0) 06/07/17 21:36 Direct Bilirubin 0.1 mg/dL (0.0-0.2) 06/07/17 21:36 Indirect Bilirubin 0.2 mg/dL (0.0-1.2) 06/07/17 21:36 AST 28 Units/L (13-39) 06/07/17 21:36 ALT 49 Units/L (7-52) 06/07/17 21:36 Alkaline Phosphatase 91 Units/L (34-104) 06/07/17 21:36 Creatine Kinase 79 Units/L (30-223) 06/07/17 22:46 Serum Total Protein 7.7 g/dL (6.4-8.9) 06/07/17 21:36 Albumin 5.1 g/dL (3.5-5.7) 06/07/17 21:36 Globulin 2.6 g/dL (2.4-3.5) 06/07/17 21:36 Albumin/Globulin Ratio 2.0 (1.1-2.2) 06/07/17 21:36 Urine Color Yellow (Yellow) 06/07/17 22:00 Urine Clarity Clear (Clear) 06/07/17 22:00 Urine pH 7.0 pH Units (5.0-8.0) 06/07/17 22:00 Ur Specific [place] 1.017 (1.010-1.025) 06/07/17 22:00 Urine Protein Negative mg/dL (Neg-Trace) 06/07/17 22:00 Urine Glucose (UA) Normal mg/dL (Normal) 06/07/17 22:00 Urine Ketones Negative mg/dL (Negative) 06/07/17 22:00 Urine Blood Negative (Negative) 06/07/17 22:00 Urine Nitrite Negative (Negative) 06/07/17 22:00 Urine Bilirubin Negative (Negative) 06/07/17 22:00 Urine Urobilinogen Normal mg/dL (Normal) 03/09/18 22:00 Ur Leukocyte Esterase Negative (Negative) 06/07/17 22:00 Salicylates < 5.0 mg/dL (15.0-30.0) L 06/07/17 21:36 Urine Opiates Screen Negative ng/mL (Rbpgwj=732) 06/07/17 22:00 Acetaminophen < 1.0 mcg/mL (10-30) L 06/07/17 21:36 Ur Barbiturates Screen Negative ng/mL (Pulgki=795) 06/07/17 22:00 Ur Phencyclidine Scrn Negative ng/mL (Cutoff=25) 06/07/17 22:00 Ur Amphetamines Screen Positive ng/mL (Juenci=9547) H 06/07/17 22:00 U Benzodiazepines Scrn Negative ng/mL (Dmgkhq=874) 06/07/17 22:00 Urine Cocaine Screen Negative ng/mL (Cutoff= 300) 06/07/17 22:00 U Marijuana (THC) Screen Positive ng/mL (Cutoff = 50) H 06/07/17 22:00 Ethyl Alcohol < 10 mg/dL (0-10) 06/07/17 21:36 Assessment and Plan (1) Bipolar affective disorder, mixed, severe, with psychotic behavior Current visit: Yes Status: Acute Plan: Admit inpatient for safety and stabilization, Close observation, Suicide Precautions per unit protocol, Encourage participation in unit milieu, Group Therapy, Monitor sleep, Monitor appetite, Family/Supportive other meeting Additional Plan: Patient need inpatient for safety and stabilization.. will start medications lithium , remeron , clonidine and add olanzapine . will hold neurontin at present. Risks, benefits, side effects, alternatives discussed w/pt: Yes Patient agreeable to treatment: Yes Plans for Post Hospital Care: at Home (2) Suicidal ideation Current visit: No Status: Acute Plan: Admit inpatient for safety and stabilization, Close observation, Suicide Precautions per unit protocol, Encourage participation in unit milieu, Group Therapy, Monitor sleep, Monitor appetite, Family/Supportive other meeting Additional Plan: patient needs inpatient for safety and stabilization. Risks, benefits, side effects, alternatives discussed w/pt: Yes Patient agreeable to treatment: Yes Plans for Post Hospital Care: at Home (3) Methamphetamine abuse Current visit: Yes Status: Acute Plan: Admit inpatient for safety and stabilization, Close observation, Suicide Precautions per unit protocol, Encourage participation in unit milieu, Group Therapy, Monitor sleep, Monitor appetite, Family/Supportive other meeting Risks, benefits, side effects, alternatives discussed w/pt: Yes Patient agreeable to treatment: Yes Plans for Post Hospital Care: at Home
[2017-06-08] MEDS: cloNIDine HCl 0.1 MG TABLET PO SCH (12:53)
[2017-06-08] MEDS: Lithium Carbonate ER 450 MG TABLET.ER PO SCH ×2 (13:45→21:23)
[2017-06-08] MEDS: OLANZapine 5 MG TAB.RAPDIS PO SCH (21:24)
[2017-06-09] MEDS: cloNIDine HCl 0.1 MG TABLET PO SCH (09:17)
[2017-06-09] MEDS: Nicotine 21 MG PATCH.TD24 TD SCH (09:17)
[2017-06-09] MEDS: Lithium Carbonate ER 450 MG TABLET.ER PO SCH ×2 (09:17→21:09)
[2017-06-09 09:47] LABS: Estimated Average Glucose 100 mg/dl; Hemoglobin A1C 5.1 %
--- NOTE | 2017-06-09 11:26 | Psychiatry Progress Note ---
Date of Encounter: 06/09/17 Time of Encounter: 11:10 Subjective Interval history: Patient seen today ,case d/w staff. I am not bouncing off and not making everyone crazy , i slept , now i have medicine i feel better. he still has racing thoughts and circumstantial thought process , he is preoccupied with his school , vivitrol and thinks he is learning all this. patient remains grandiose and over recent past few months praying a lot , he has been compliant with treatment plan on unit. Labs lithium was 0.1 , tsh and hga1c are wnl. Review of Systems Psychiatric: Reports: abnormal sleep pattern, suicidal ideation, change in appetite, auditory hallucinations, difficulty concentrating, irritability, mood swings Results - Vital Signs Vital Signs: Temp Pulse Resp BP Pulse Ox 97.6 F 101 16 117/86 100 06/09/17 09:00 06/09/17 09:00 06/09/17 09:00 06/09/17 09:00 06/08/17 00:22 - Drug Levels and Toxicology Drug Levels and Toxicology: Drug Levels and Toxicity 06/08/17 11:34 [place] < 0.1 L - Labs Labs: Laboratory Results - last 24 hr 06/08/17 06/08/17 06/08/17 11:34 11:34 11:34 Est Mean Plasma Glucose 100 Hemoglobin A1c 5.1 TSH 2.116 [place] < 0.1 L Assessment and Plan (1) Bipolar affective disorder, mixed, severe, with psychotic behavior Current visit: Yes Status: Acute Risks, benefits, side effects, alternatives discussed w/pt: Yes Patient agreeable to treatment: Yes (2) Suicidal ideation Current visit: No Status: Acute Risks, benefits, side effects, alternatives discussed w/pt: Yes Patient agreeable to treatment: Yes (3) Methamphetamine abuse Current visit: Yes Status: Acute Risks, benefits, side effects, alternatives discussed w/pt: Yes Patient agreeable to treatment: Yes Consult Discharge Plan - Plan Referrals: [facility] [Outside] - 06/18/17 3:00 pm (Pt has an appointment card stated appointment with Alpesh Auguste DNP, [facility] on 06/18/17 at 1500., reason being for "Bipolar" ) Psychiatry Exam - Constitutional Vitals: Temp Pulse Resp BP Pulse Ox 97.6 F 101 16 117/86 100 06/09/17 09:00 06/09/17 09:00 06/09/17 09:00 06/09/17 09:00 06/08/17 00:22 General appearance: age & developmentally appropriate - Musculoskeletal Gait: normal Station: other Strength & Tone: normal for patient - Psychiatric Patient Orientation: Yes Person, Yes Time, Yes Place Level of alertness: Alert Behavior: cooperative, distractible, talkative Psychomotor activity: Increased Eye Contact: Maintains Eye Contact Mood Description: Elevated, Euphoric Affect description: euphoric Speech Volume: Excessive Variation Speech pattern: excessive Language & Vocabulary: consistent with education Thought Process: Circumstantial, Tangential, Racing Thought Content: Yes Grandiose delusion Attention Span Ability: Unable to Sustain Attention Memory Description: Grossly Intact Patient Reliability: Questionable Historian Fund of knowledge: Yes average Intelligence Estimate: Average Judgment: Limited Insight: Minimal
[2017-06-09] MEDS: OLANZapine 5 MG TAB.RAPDIS PO SCH (21:09)
[2017-06-10] MEDS: Lithium Carbonate ER 450 MG TABLET.ER PO SCH ×2 (09:00→21:14)
[2017-06-10] MEDS: Nicotine 21 MG PATCH.TD24 TD SCH (09:00)
[2017-06-10] MEDS: cloNIDine HCl 0.1 MG TABLET PO SCH (09:00)
--- NOTE | 2017-06-10 17:36 | Psychiatry Progress Note ---
Date of Encounter: 06/10/17 Time of Encounter: 17:10 Subjective Interval history: Patient seen for follow-up. Case discussed with nursing staff. He is showing some improvement, continue to present grandiose delusions and circumstantial speech with poor insight. Review of Systems Psychiatric: Reports: abnormal sleep pattern, suicidal ideation, change in appetite, auditory hallucinations, difficulty concentrating, irritability, mood swings Results - Vital Signs Vital Signs: Temp Pulse Resp BP Pulse Ox 97.6 F 93 16 128/78 100 06/10/17 09:00 06/10/17 09:00 06/10/17 09:00 06/10/17 09:00 06/08/17 00:22 Assessment and Plan (1) Bipolar affective disorder, mixed, severe, with psychotic behavior Current visit: Yes Status: Acute Plan: Continue hospitalization, Close observation, Suicide Precautions per unit protocol, Encourage participation in unit milieu, Group Therapy, Monitor sleep, Monitor appetite Risks, benefits, side effects, alternatives discussed w/pt: Yes Patient agreeable to treatment: Yes Consult Discharge Plan - Plan Referrals: spring [Other] - 06/13/17 1:45 pm (The above appointment is with Brandi Strauss and Dr. Morin for outpatient substance abuse assessment and treatment, and medication assisted treatment with Vivitrol. Additional substance abuse treatment referrals can be made as needed following this appointment.) [facility] [place] [Outside] - 06/18/17 3:00 pm (The above appointment is with Ramon Auguste for primary health care and medication management services.) [facility] [Outside] Psychiatry Exam - Constitutional Vitals: Temp Pulse Resp BP Pulse Ox 97.6 F 93 16 128/78 100 06/10/17 09:00 06/10/17 09:00 06/10/17 09:00 06/10/17 09:00 06/08/17 00:22 General appearance: age & developmentally appropriate, well-groomed, well- nourished - Musculoskeletal Gait: normal Station: relaxed Strength & Tone: normal for patient - Psychiatric Patient Orientation: Yes Person, Yes Time, Yes Place Level of alertness: Alert Behavior: calm, cooperative, restless, distractible, talkative, dramatic Psychomotor activity: Increased Eye Contact: Maintains Eye Contact Mood Description: Elevated, Labile Affect description: labile, euphoric, inappropriate to situation Speech Volume: Normal Speech pattern: fluent, spontaneous, Inappropriate to situation, excessive, pressured Language & Vocabulary: consistent with education Thought Process: Circumstantial, Tangential, Flight of Ideas, Racing Thought Content: No Suicidal ideation, No Homicidal ideation, No Overt delusions Perceptual Disturbances: No Auditory hallucinations, No Visual hallucinations Attention Span Ability: Capable of Focused Attention Memory Description: Grossly Intact Patient Reliability: Questionable Historian Fund of knowledge: Yes abstraction ability, Yes aware of current events Intelligence Estimate: Average Judgment: Limited Insight: Partial
--- NOTE | 2017-06-10 18:50 | Electrocardiograph Report ---
[place] [address] Test Date: 2017-06-07 Pat Name: Rogelio Livingston Department: 104 Room: 1A42 Gender: M Vp Platforms: CONG : 1990 Requested By: Echo See Order Number: [id number] Reading MD: Harish Dexter MD Measurements Intervals [place] Rate: 141 P: 72 AL: 151 QRS: 82 QRSD: 94 T: 51 QT: 274 QTc: 356 Interpretive Statements SINUS TACHYCARDIA Electronically Signed On 06-10-2017 18:49:21 EDT by Harish Dexter MD
[2017-06-10] MEDS: OLANZapine 5 MG TAB.RAPDIS PO SCH (21:14)
[2017-06-11] MEDS: Nicotine 21 MG PATCH.TD24 TD SCH (09:30)
[2017-06-11] MEDS: Lithium Carbonate ER 450 MG TABLET.ER PO SCH ×2 (09:31→20:40)
[2017-06-11] MEDS: cloNIDine HCl 0.1 MG TABLET PO SCH (09:31)
--- NOTE | 2017-06-11 14:21 | Psychiatry Progress Note ---
Date of Encounter: 06/11/17 Time of Encounter: 14:00 Subjective Interval history: Patient seen for follow-up. Case discussed was treatment team. Patient denies any problem with sleep or appetite . He is participating attending groups. He is pleasant and talkative smiling frequently. Review of Systems Psychiatric: Reports: abnormal sleep pattern, suicidal ideation, change in appetite, auditory hallucinations, difficulty concentrating, irritability, mood swings Results - Vital Signs Vital Signs: Temp Pulse Resp BP Pulse Ox 97.3 F L 76 16 128/87 100 06/11/17 09:00 06/11/17 09:00 06/11/17 09:00 06/11/17 09:00 06/08/17 00:22 Assessment and Plan (1) Bipolar affective disorder, mixed, severe, with psychotic behavior Current visit: Yes Status: Acute Plan: Continue hospitalization, Close observation, Suicide Precautions per unit protocol, Encourage participation in unit milieu, Group Therapy, Monitor sleep, Monitor appetite Additional Plan: Hominy level is ordered for tomorrow evaluate medication level. Risks, benefits, side effects, alternatives discussed w/pt: Yes Patient agreeable to treatment: Yes Consult Discharge Plan - Plan Referrals: spring [Other] - 06/13/17 1:45 pm (The above appointment is with Brandi Strauss and Dr. Morin for outpatient substance abuse assessment and treatment, and medication assisted treatment with Vivitrol. Additional substance abuse treatment referrals can be made as needed following this appointment.) [facility] [place] [Outside] - 06/18/17 3:00 pm (The above appointment is with Rmaon Auguste for primary health care and medication management services.) [facility] [Outside] Psychiatry Exam - Constitutional Vitals: Temp Pulse Resp BP Pulse Ox 97.3 F L 76 16 128/87 100 06/11/17 09:00 06/11/17 09:00 06/11/17 09:00 06/11/17 09:00 06/08/17 00:22 General appearance: age & developmentally appropriate, well-groomed, well- nourished, bizarre - Musculoskeletal Gait: normal Station: relaxed Strength & Tone: normal for patient - Psychiatric Patient Orientation: Yes Person, Yes Time, Yes Place Level of alertness: Alert Behavior: calm, cooperative, restless Psychomotor activity: Increased Eye Contact: Maintains Eye Contact Mood Description: Euthymic/stable Affect description: euphoric, inappropriate to situation Speech Volume: Normal Speech pattern: normal rate, normal rhythm, normal tone, fluent, spontaneous, excessive, pressured Language & Vocabulary: consistent with education Thought Process: Linear, Goal Oriented Thought Content: No Suicidal ideation, No Homicidal ideation, No Overt delusions Perceptual Disturbances: No Auditory hallucinations, No Visual hallucinations Attention Span Ability: Capable of Focused Attention Memory Description: Grossly Intact Patient Reliability: Questionable Historian Fund of knowledge: Yes abstraction ability, Yes average, Yes aware of current events Intelligence Estimate: Average Judgment: Limited Insight: Partial
[2017-06-11] MEDS: OLANZapine 5 MG TAB.RAPDIS PO SCH (20:40)
[2017-06-12] MEDS: cloNIDine HCl 0.1 MG TABLET PO SCH (08:42)
[2017-06-12] MEDS: Lithium Carbonate ER 450 MG TABLET.ER PO SCH ×2 (08:42→20:19)
[2017-06-12] MEDS: Nicotine 21 MG PATCH.TD24 TD SCH (08:43)
--- NOTE | 2017-06-12 14:37 | Psychiatry Progress Note ---
Date of Encounter: 06/12/17 Time of Encounter: 14:00 Subjective Interval history: Patient seen for follow-up. Case discussed with treatment team. Patient signed in voluntarily and his status changed. His discharge plans are scheduled for tomorrow and social work completed the details. Patient is showing improved mood and he is compliant with medication, lithium level is 0.6 low therapeutic and results were discussed with the patient. He denies any suicidal ideation or hallucinations. He is less labile. Review of Systems Psychiatric: Reports: abnormal sleep pattern, suicidal ideation, change in appetite, auditory hallucinations, difficulty concentrating, irritability, mood swings Results - Vital Signs Vital Signs: Temp Pulse Resp BP Pulse Ox 97.6 F 84 18 121/87 100 06/12/17 09:00 06/12/17 09:00 06/12/17 09:00 06/12/17 09:00 06/08/17 00:22 - Drug Levels and Toxicology Drug Levels and Toxicology: Drug Levels and Toxicity 06/12/17 08:23 [place] 0.6 - Labs Labs: Laboratory Results - last 24 hr 06/12/17 08:23 [place] 0.6 Assessment and Plan (1) Bipolar affective disorder, mixed, severe, with psychotic behavior Current visit: Yes Status: Acute Plan: Continue hospitalization, Close observation, Suicide Precautions per unit protocol, Encourage participation in unit milieu, Group Therapy, Monitor sleep, Monitor appetite Risks, benefits, side effects, alternatives discussed w/pt: Yes Patient agreeable to treatment: Yes Consult Discharge Plan - Plan Referrals: spring [Other] - 06/13/17 1:45 pm (The above appointment is with Brandi Strauss and Dr. Morin for outpatient substance abuse assessment and treatment, and medication assisted treatment with Vivitrol. Additional substance abuse treatment referrals can be made as needed following this appointment.) [facility] [place] [Outside] - 06/18/17 3:00 pm (The above appointment is with Ramon Auguste for primary health care and medication management services.) [facility] [Outside] - 08/08/17 3:00 pm (The above appointment is with Nicci Loredo Daily for outpatient psychiatric assessment and medication management services. Please arrive 30 minutes early to complete paperwork. Please bring your photo ID (bring proof of address if you do not have an ID) and medication list. The above appointment(s) reflects first availability. You may contact the office regularly to check for cancellations that may allow you to be seen sooner. You have no-showed several prior appointments in this practice. It is imperative you keep this appointment or cancel with 24 business hours notice in order to remain eligible for care.) Psychiatry Exam - Constitutional Vitals: Temp Pulse Resp BP Pulse Ox 97.6 F 84 18 121/87 100 06/12/17 09:00 06/12/17 09:00 06/12/17 09:00 06/12/17 09:00 06/08/17 00:22 General appearance: age & developmentally appropriate, well-groomed, well- nourished - Musculoskeletal Gait: normal Station: relaxed Strength & Tone: normal for patient - Psychiatric Patient Orientation: Yes Person, Yes Time, Yes Place Level of alertness: Alert Behavior: calm, cooperative Psychomotor activity: Increased Eye Contact: Maintains Eye Contact Mood Description: Euthymic/stable Affect description: congruent with mood, full range Speech Volume: Normal Speech pattern: normal rate, normal rhythm, normal tone, fluent, spontaneous, excessive Language & Vocabulary: consistent with education Thought Process: Linear, Goal Oriented Thought Content: No Suicidal ideation, No Homicidal ideation, No Overt delusions Perceptual Disturbances: No Auditory hallucinations, No Visual hallucinations Attention Span Ability: Capable of Focused Attention Memory Description: Grossly Intact Patient Reliability: Reliable Historian Fund of knowledge: Yes abstraction ability, Yes aware of current events Intelligence Estimate: Average Judgment: Limited Insight: Partial
[2017-06-12] MEDS: OLANZapine 5 MG TAB.RAPDIS PO SCH (20:19)
[2017-06-13 09:29] VITALS: BP 132/83
[2017-06-13] MEDS: Nicotine 21 MG PATCH.TD24 TD SCH (09:37)
[2017-06-13] MEDS: Lithium Carbonate ER 450 MG TABLET.ER PO SCH (09:38)
[2017-06-13] MEDS: cloNIDine HCl 0.1 MG TABLET PO SCH (09:38)
--- NOTE | 2017-06-13 10:07 | Discharge Summary ---
Date of Encounter: 06/13/17 Time of Encounter: 09:59 Diagnosis - Discharge Diagnosis (1) Bipolar affective disorder, mixed, severe, with psychotic behavior Status: Acute Medications - Discharge Medications Prescriptions: cloNIDine HCl [Clonidine HCl] 0.2 mg PO BID #60 tablet [place] Carbonate ER [Eskalith] 450 mg PO BID #60 tablet.er Mirtazapine [Remeron] 30 mg PO HS #30 tablet OLANZapine [Zyprexa Zydis] 5 mg PO HS #30 tab.rapdis Cyclobenzaprine [Flexeril] 10 mg PO TID PRN 06/08/17 [History] Gabapentin [Neurontin] 600 mg PO QID 06/08/17 [History] hydrOXYzine pamoate [HydrOXYzine Pamoate] 25 mg PO QID PRN 06/08/17 [History] [place] Carbonate ER [Eskalith] 450 mg PO BID #60 tablet.er 06/13/17 [Rx] Mirtazapine [Remeron] 30 mg PO HS #30 tablet 06/13/17 [Rx] OLANZapine [Zyprexa Zydis] 5 mg PO HS #30 tab.rapdis 06/13/17 [Rx] cloNIDine HCl [Clonidine HCl] 0.2 mg PO BID #60 tablet 06/13/17 [Rx] 3 Allergy/AdvReac Type Severity Reaction Status Date / Time aspirin Allergy See Verified 06/08/17 10:02 Comments Results Procedures and tests throughout hospitalization: Completed Lab Orders Category Date Time Status Hgb A1C Routine Lab 06/08/17 11:34 Completed [place] AM 0400 Lab 06/12/17 08:23 Completed [place] Stat Lab 06/08/17 11:34 Completed TSH [Thyroid Stimulating Hormone] Routine Lab 06/08/17 11:34 Completed Provider Date of admission: 06/08/17 03:06 Primary care physician: PCP NONE Discharging clinician: Bharathi Johnson Psychiatry Exam - Constitutional Vitals: Temp Pulse Resp BP Pulse Ox 97.4 F L 81 14 132/83 100 06/13/17 09:00 06/13/17 09:00 06/13/17 09:00 06/13/17 09:00 06/08/17 00:22 General appearance: age & developmentally appropriate, well-groomed, well- nourished - Musculoskeletal Gait: normal Station: relaxed Strength & Tone: normal for patient - Psychiatric Patient Orientation: Yes Person, Yes Time, Yes Place Level of alertness: Alert Behavior: calm, cooperative Psychomotor activity: Normal Eye Contact: Maintains Eye Contact Mood Description: Euthymic/stable Affect description: congruent with mood, full range Speech Volume: Normal Speech pattern: normal rate, normal rhythm, normal tone, fluent, spontaneous Language & Vocabulary: consistent with education Thought Process: Linear, Goal Oriented Thought Content: No Suicidal ideation, No Homicidal ideation, No Overt delusions Perceptual Disturbances: No Auditory hallucinations, No Visual hallucinations Attention Span Ability: Capable of Focused Attention Memory Description: Grossly Intact Patient Reliability: Reliable Historian Fund of knowledge: Yes abstraction ability, Yes aware of current events Intelligence Estimate: Average Judgment: Limited Insight: Partial Hospital Course Hospital course: Mr. Livingston is a 26 year old male admitted for evaluation and treatment of bipolar disorder mixed episode suicidal ideation and methamphetamine abuse. For details of the admission please see H&P On the unit patient was evaluated and started on medication including Zyprexa and lithium in addition to clonidine and mirtazapine. Patient responded to medication positively, he was less labile not agitated, denies suicidal ideation , participated in group activities. Patient was educated about his illness and medication and compliance with treatment, also he was referred for evaluation to get a Vivitrol injection after discharge. On discharge the patient was pleasant and cooperative, compliant with his medication, his lithium level was 0.6. He denies suicidal ideation, he denied any hallucinations. He showed improved insight into his illness. He was medically stable and discharged in stable condition. - Time Spent with Patient Total time spent providing and/or coordinating discharge services: Less than 30 minutes Assessment and Plan - Patient/Caregiver Discharge Instructions Activity: resume usual activities as tolerated Diet: regular diet - Follow up Plan Follow up with: [facility] [Other] - 06/13/17 1:45 pm (The above appointment is with Brandi Strauss and Dr. Morin for outpatient substance abuse assessment and treatment, and medication assisted treatment with Vivitrol. Additional substance abuse treatment referrals can be made as needed following this appointment.) [facility] [place] [Outside] - 06/18/17 3:00 pm (The above appointment is with Ramon Auguste for primary health care and medication management services.) [facility] [Outside] - 08/08/17 3:00 pm (The above appointment is with Nicci Loredo Daily for outpatient psychiatric assessment and medication management services. Please arrive 30 minutes early to complete paperwork. Please bring your photo ID (bring proof of address if you do not have an ID) and medication list. The above appointment(s) reflects first availability. You may contact the office regularly to check for cancellations that may allow you to be seen sooner. You have no-showed several prior appointments in this practice. It is imperative you keep this appointment or cancel with 24 business hours notice in order to remain eligible for care.) Functional capacity at discharge: independent ambulation Overall status at discharge: Stable Disposition: Home, Self-Care Quality - Multiple Antipsychotics Patient discharged on 2 or more antipsychotic medications: No Procedures - Procedures Procedures: Medication Management, Crisis Stabilization, Supportive Therapy, Group Therapy, Psychoeducational Therapy
== END 2017-06-13 11:20 | disposition home or self-care (01) | DRG 753 ==
LOC: EMEROO 20:59 → SUATTDRO 06-08 03:06 → 1ANU 06-08 03:06
PROVIDERS: ADMIT Psychiatry & Neurology Psychiatry; ATTEND Psychiatry & Neurology Psychiatry

== ENCOUNTER 2020-07-09 13:17 | Observation (INO) ==
[2020-07-09] MEDS ORDERED: Isovue-370 500 ML BOTTLE IVP ONE (14:31)
[2020-07-09 14:44] LABS: Basophils % 0.3 %; Eosinophils # 0.1 K/mcL (0.0-0.6); Eosinophils % 1.9 %; Hematocrit 40.5 % (37.5-50.1); Hemoglobin 13.3 g/dL (12.9-16.9); Immature Granulocytes % 0.4 % (0-4); Lymphocytes # 1.1 K/mcL (0.6-4.6); Lymphocytes % 14.7 %; Mean Corpuscular HGB Conc 32.8 g/dL (31.6-35.5); Mean Corpuscular Hemoglobin 28.8 pg (28.0-33.3); Mean Corpuscular Volume 87.7 fL (83.0-100.0); Monocytes # 0.8 K/mcL (0.0-1.3); Monocytes % 10.6 %; Neutrophils # 5.3 K/mcL (1.6-8.9); Platelet Count 382 K/mcL (140-400); Red Blood Count 4.62 M/mcL (4.19-5.50); Red Cell Distribution Width 14.8 % (11.5-14.5); Segmented Neutrophils % 72.1 %; White Blood Count 7.3 K/mcL (4.3-11.1)
[2020-07-09 15:03] LABS: BUN/Creatinine Ratio 17 (6-26); Blood Urea Nitrogen 14 mg/dL (6-20); Calcium 9.2 mg/dL (8.6-10.3); Carbon Dioxide 21 mEq/L (23-29); Chloride 108 mEq/L (98-107); Glucose 115 mg/dL (70-105); Osmolality,Calculated 287 (280-300); Potassium 3.8 mEq/L (3.5-5.1); Sodium 138 mEq/L (136-145); eGFR For African Americans > 60 (> 60); eGFR For Non-African Americans > 60 (> 60)
[2020-07-09] MEDS ORDERED: 0.9 % Sodium Chloride 1,000 ML IV ONE (15:05)
[2020-07-09] MEDS ORDERED: Ondansetron 4 MG/2 ML VIAL IVP PRN (16:36)
[2020-07-09] MEDS ORDERED: Naloxone 0.4 MG/ML INJ IVP PRN (16:36)
[2020-07-09] MEDS: Ketorolac 15 MG/ML VIAL IVP SCH ×2 (20:17→23:33)
[2020-07-09] MEDS: cloNIDine HCL 0.1 MG TABLET PO SCH (20:17)
[2020-07-09 20:29] LABS: Adenovirus Not Detected (Not Detect); Bordetella Pertussis Not Detected (Not Detect); Chlamydophila pneumoniae Not Detected (Not Detect); Coronavirus 229E Not Detected (Not Detect); Coronavirus HKU1 Not Detected (Not Detect); Coronavirus NL63 Not Detected (Not Detect); Coronavirus OC43 Not Detected (Not Detect); Human Metapneumovirus Not Detected (Not Detect); Human Rhinovirus/Enterovirus Not Detected (Not Detect); Influenza A Subtype 2009 H1 Not Detected (Not Detect); Influenza B Not Detected (Not Detect); Mycoplasma pneumoniae Not Detected (Not Detect); Parainfluenza Virus 1 Not Detected (Not Detect); Parainfluenza Virus 2 Not Detected (Not Detect); Parainfluenza Virus 3 Not Detected (Not Detect); Parainfluenza Virus 4 Not Detected (Not Detect); Respiratory Syncytial Virus Not Detected (Not Detect); SARS-CoV-2 Not Detected (Not Detect)
[2020-07-09] MEDS ORDERED: QUEtiapine Fumarate 300 MG TABLET PO SCH (21:00)
[2020-07-09] MEDS ORDERED: traZODone 50 MG TABLET PO SCH (21:00)
[2020-07-09] MEDS: 0.9 % Sodium Chloride 2,000 ML IVC SCH (23:33)
[2020-07-09] MEDS: Piperacillin/Tazobactam 3.375 GM in 0.9 % Sodium Chloride Mini Bag 100 ML IVPB SCH (23:34)
[2020-07-10] MEDS: Vancomycin 1,500 MG/265 ML IV.SOLN IVPB SCH ×3 (05:16→20:08)
[2020-07-10] MEDS: Ketorolac 15 MG/ML VIAL IVP SCH ×3 (05:16→18:18)
[2020-07-10 06:51] LABS: Basophils % 0.3 %; Eosinophils # 0.2 K/mcL (0.0-0.6); Eosinophils % 3.8 %; Hematocrit 38.1 % (37.5-50.1); Hemoglobin 12.6 g/dL (12.9-16.9); Immature Granulocytes % 0.3 % (0-4); Lymphocytes # 1.4 K/mcL (0.6-4.6); Lymphocytes % 22.3 %; Mean Corpuscular HGB Conc 33.1 g/dL (31.6-35.5); Mean Corpuscular Hemoglobin 28.5 pg (28.0-33.3); Mean Corpuscular Volume 86.2 fL (83.0-100.0); Mean Platelet Volume 8.6 fL (9.4-12.4); Monocytes % 16.1 %; Neutrophils # 3.7 K/mcL (1.6-8.9); Platelet Count 350 K/mcL (140-400); Red Blood Count 4.42 M/mcL (4.19-5.50); Red Cell Distribution Width 14.6 % (11.5-14.5); Segmented Neutrophils % 57.2 %; White Blood Count 6.4 K/mcL (4.3-11.1)
[2020-07-10 07:14] LABS: Alanine Aminotransferase 41 Units/L (7-52); Albumin 3.4 g/dL (3.5-5.7); Albumin/Globulin Ratio 1.5 (1.1-2.2); Alkaline Phosphatase 74 Units/L (34-104); Aspartate Amino Transferase 10 Units/L (13-39); BUN/Creatinine Ratio 16 (6-26); Bilirubin,Total 0.3 mg/dL (0.3-1.0); Blood Urea Nitrogen 13 mg/dL (6-20); Calcium 8.6 mg/dL (8.6-10.3); Carbon Dioxide 24 mEq/L (23-29); Chloride 110 mEq/L (98-107); Globulin 2.3 g/dL (2.4-3.5); Glucose 102 mg/dL (70-105); Osmolality,Calculated 288 (280-300); Potassium 3.9 mEq/L (3.5-5.1); Sodium 139 mEq/L (136-145); Total Protein 5.7 g/dL (6.4-8.9); eGFR For African Americans > 60 (> 60); eGFR For Non-African Americans > 60 (> 60)
[2020-07-10] MEDS ORDERED: *HR* OxyCODONE Immed Rel 5 MG TABLET PO PRN (08:15)
[2020-07-10] MEDS ORDERED: *HR* FentaNYL (PF) 100 MCG/2 ML VIAL IVP PRN (08:15)
[2020-07-10] MEDS ORDERED: LISDEXAMFETAMINE DIMESYLATE 50 MG PO SCH (09:00)
[2020-07-10] MEDS ORDERED: PARoxetine 20 MG TABLET PO SCH (09:00)
[2020-07-10] MEDS: Piperacillin/Tazobactam 3.375 GM in 0.9 % Sodium Chloride Mini Bag 100 ML IVPB SCH ×3 (09:32→20:08)
[2020-07-10] MEDS: cloNIDine HCL 0.1 MG TABLET PO SCH ×2 (09:33→21:42)
[2020-07-10] MEDS ORDERED: Nicotine 2 MG GUM BC PRN ×2 (11:39→16:51)
[2020-07-10] MEDS ORDERED: HUMATE P IVPB ONE ×3 (13:41→23:00)
[2020-07-10] MEDS ORDERED: [UNRECOGNIZED DRUG - MIXTURE] IVPB ONE ×2 (14:15→16:51)
[2020-07-10] MEDS ORDERED: Lidocaine -MPF 2% 2 ML VIAL ONE (15:02)
[2020-07-10] MEDS ORDERED: *HR* Propofol 200 MG/20 ML VIAL IVP ONE ×2 (15:02→15:45)
[2020-07-10] MEDS ORDERED: Ondansetron 4 MG/2 ML VIAL ONE (15:02)
[2020-07-10] MEDS ORDERED: *HR* FentaNYL (PF) 100 MCG/2 ML VIAL ONE (15:44)
[2020-07-10] MEDS ORDERED: Cefepime HCl 1,000 MG in 0.9 % Sodium Chloride Mini Bag 100 ML IVPB ONE ×2 (16:05→16:51)
[2020-07-10] MEDS: *HR* HYDROmorphone (PF) 1 MG/ML SYRINGE IVP PRN ×2 (16:15→16:25)
[2020-07-10] MEDS ORDERED: Ondansetron 4 MG/2 ML VIAL IVP PRN (16:51)
[2020-07-10] MEDS ORDERED: Naloxone 0.4 MG/ML INJ IVP PRN (16:51)
[2020-07-10] MEDS ORDERED: Vancomycin 1,500 MG/265 ML IV.SOLN IVPB SCH (17:00)
[2020-07-10] MEDS ORDERED: Ketorolac 15 MG/ML VIAL IVP SCH (19:30)
[2020-07-10] MEDS: 0.9 % Sodium Chloride 2,000 ML IVC SCH (20:07)
[2020-07-10] MEDS ORDERED: QUEtiapine Fumarate 300 MG TABLET PO SCH (21:00)
[2020-07-10] MEDS ORDERED: traZODone 50 MG TABLET PO SCH (21:00)
[2020-07-11] MEDS: Piperacillin/Tazobactam 3.375 GM in 0.9 % Sodium Chloride Mini Bag 100 ML IVPB SCH ×2 (00:47→07:58)
[2020-07-11] MEDS: Ketorolac 15 MG/ML VIAL IVP SCH ×2 (00:47→06:17)
[2020-07-11] MEDS: Vancomycin 1,500 MG/265 ML IV.SOLN IVPB SCH (06:16)
[2020-07-11 07:01] VITALS: BP 110/67
[2020-07-11] MEDS: cloNIDine HCL 0.1 MG TABLET PO SCH (07:57)
[2020-07-11] MEDS ORDERED: LISDEXAMFETAMINE DIMESYLATE 50 MG PO SCH (09:00)
[2020-07-11] MEDS ORDERED: PARoxetine 20 MG TABLET PO SCH (09:00)
== END 2020-07-11 11:54 | disposition home or self-care (01) ==
LOC: 3ANU 13:17 → EMEROOARM 13:17 → SUATTDRO 16:56 → 3ANU 17:53
PROVIDERS: ADMIT General Practice; ATTEND Internal Medicine